=== PATIENT | male | born 2000 | race Hispanic/Latino ===

== ENCOUNTER 2024-06-17 17:22 | Emergency (ER) | payer SELFPAY ==
[~2024-06-17] VITALS: Ht 162.6 cm; Wt 59.0 kg
[2024-06-17 17:59] LABS: COVID19 (SARS ANTIGEN RAPID) PRESUMPTIVE NEGATIVE (NEGATIVE); INFLUENZA TYPE B Negative For Type B (NEGATIVE)
[2024-06-17 18:15] LABS: INFLUENZA TYPE A Positive For Type A (NEGATIVE)
[2024-06-17] MEDS: acetaMINOPHEN 500 MG TABLET PO STA (18:16)
[2024-06-17] MEDS: ketOROlac 15MG/ML VIAL (15MG/ML) IV STA (18:16)
[2024-06-17] MEDS: 0.9%NACL 1000ML 1,000 ML IV SCH (18:16)
[2024-06-17 18:39] VITALS: TEMP 99.5
[2024-06-17 18:45] VITALS: BP 135/80; PULSE 90; RESP 16; TEMP 99.5; O2SAT 98
[2024-06-17] MEDS ORDERED: OSEL75 PO (19:17)
[2024-06-17] MEDS ORDERED: ONDA-243 PO (19:17)
--- NOTE | 2024-06-17 19:18 | ERN ---
ED Note History of Present Illness Stated Complaint: FLU LIKE SYMPTOMS SINCE YESTERDAY Chief Complaint: Flu Symptoms Time Seen by MD: 17:23 Time Seen by Midlevel: 17:26 Dictation: 24-year-old male with no past medical history coming in complaining of flu-like symptoms since yesterday. Patient states he took Tylenol cold and flu at 8:00 a.m. but had an vomiting episodes. Denies any other symptoms. Past Medical History Past Medical History: No Pertinent History Surgical History: None Review of System Dictation Constitutional: Positive for fever and chills and body aches Eyes: Negative for injury, pain,redness, and discharge ENT: Negative for injury,pain or swelling Cardiovascular: Negative for chest pain, palpitations, and edema Respiratory: Complaining of cough and congestion, no wheezing or short of breath Abdomen/GI: Negative for abdominal pain, nausea, vomiting, diarrhea, and constipation Back: Negative for injury and pain : Negative for injury, bleeding and discharge MS/Extremity: Negative for injury and deformity Skin: Negative for rash, and discoloration Neuro: Negative for headache, weakness, numbness, tingling, and seizure Psych: Negative for suicide ideation, homicidal ideation, and hallucinations Review of Systems: was completed Initial Vital Sign VS Vital Signs Date Time Temp Pulse Resp B/P (MAP) Pulse Ox O2 Delivery O2 Flow Rate FiO2 06/17/24 17:24 100.6 111 20 142/88 98 Room Air 0 06/17/24 18:45 21 Physical Exam Dictation General: awake, alert, NAD Head/Face: Normocephalic, atraumatic Eyes: PERRL, EOMI, vision at baseline ENT: oral cavity clear, TMs clear, no signs of infection Neck: Trachea midline, supple, no nuchal rigidity Cardiovascular: RRR, normal S1/S2, No MRGs, no JVD Respiratory: CTAB, no respiratory distress, No rales or wheezes Abdomen: Soft, non-tender, non-distended, normal bowel sounds, no guarding or rebound. Skin: Warm, dry, normal turgor, no rash MS/Extremity: Pulses equal, no cyanosis, neurovascular intact, FROM Neuro: COAx4, GCS 15, strength 5/5, CN 2-12 intact, normal cerebellar exam, normal gait, Psych: Normal behavior, mood, and affect normal Results (Laboratory/Radiology) Laboratory/Radiology Laboratory Tests Test 06/17/24 17:26 06/17/24 17:46 Influenza Type A Antigen Positive For Type A Influenza Type B Antigen Negative For Type B SARS-CoV-2 Antigen (Rapid) PRESUMPTIVE NEGATIVE Group A Streptococcus Rapid negative (NEGATIVE) Labs Reviewed?: Yes ED Course ED Course Orders Procedure Category Date Status Time Influenza Type A & B, LAB 06/17/24 Complete Rapid 17:24 Covid19 (Sars Antigen LAB 06/17/24 Complete Rapid) 17:24 Rapid (Group A Strep) LAB 06/17/24 Complete 17:41 Acetaminophen 500mg PHA 06/17/24 Complete Tab (Tylenol 500mg T 17:41 Ketorolac PHA 06/17/24 Complete Tromethamine 15mg/Ml 17:41 0.9%Nacl 1000ml (Ns PHA 06/17/24 In Process 1000ml) 18:00 Current Medications Medications (Trade) Dose Ordered Sig/Hans Route PRN Reason Start Time Stop Time Status Last Admin Dose Admin Acetaminophen (TYLenol 500MG TAB) 1,000 mg ONCE STAT PO 06/17/24 17:41 06/17/24 17:43 DC 06/17/24 18:16 Ketorolac Tromethamine (toRADol) 15 mg ONCE STAT IV 06/17/24 17:41 06/17/24 17:43 DC 06/17/24 18:16 Sodium Chloride 1,000 ml @ 1,000 mls/hr Q1H IV 06/17/24 18:00 07/17/24 17:59 06/17/24 18:16 Vital Signs Date Time Temp Pulse Resp B/P (MAP) Pulse Ox O2 Delivery O2 Flow Rate FiO2 06/17/24 18:45 99.5 90 16 135/80 98 Room Air* 0 21 06/17/24 18:16 100.2 06/17/24 17:24 100.6 111 20 142/88 98 Room Air 0 Medical Decision Making MDM MDM: 24-year-old male with no past medical history coming in complaining of flu- like symptoms since yesterday. Patient states he took Tylenol cold and flu at 8:00 a.m. but had an vomiting episodes. Denies any other symptoms. Serology positive for flu A. We will prescribe patient Tamiflu. Discussed that he needs to take Tylenol or Motrin [id number] to control symptoms and he can buy wohx-[id number] decongestants and cough suppressants to help. Patient verbalized understanding, answered all questions. Differential diagnosis: Influenza, COVID, strep, viral syndrome Rationale: Tests considered and ordered secondary to shared decision making include: Previous outside records reviewed: Old ER visits. Risk of complication and/or morbidity or mortality of patient management: None Medications-Per medication reconciliation Need for hospitalization: Patient does not meet criteria for hospitalization. Need for emergency major/minor surgery: No There are no social concerns with this patient. Prescription drug management Prescriptions will include symptomatic care Patient's prior external medical records from other ER visits were reviewed by me as indicated. Prior testing and results from previous visits were reviewed. Prior tests were taken into account with medical decision making and resource utilization, independent historian/historians were used to obtain complete medical history. I independently interpreted the test that were performed, results were reviewed by me and considered findings on radiology if ordered. Medical management and examination interpretation discussions were had by me with other qualified healthcare professionals as indicated for the patient's care. DX & DISP Disposition: Discharge Departure Impression: Primary Impression: Influenza Condition: Stable Scripts Ondansetron (Ondansetron Odt) 4 Mg Tab.rapdis 4 MG PO Q6HPRN PRN for nausea, #16 TAB 0 Refills Prov: STAR ROTH NP 06/17/24 Oseltamivir Phosphate (Tamiflu) 75 Mg Cap 1 CAP PO BID for 5 Days, #10 CAP 0 Refills Prov: STAR ROTH NP 06/17/24 Additional Instructions: You have influenza. You can take stxx-kew-aqyemwn Tylenol and Motrin to control the fever and body aches. You can also take iyne-hfg-skebkgq decongestants and cough medication. Return to the hospital if any symptoms worsen. Time of Disposition: 19:17 I have reviewed the case, and I agree with, Diagnosis and Plan STAR ROTH NP Jun 17, 2024 19:17
== END 2024-06-17 19:31 | disposition home or self-care (01) ==
LOC: EDH 17:22 → EDBD 17:22 → EDH 19:31
DX: J11.1 Influenza due to unidentified influenza virus with other respiratory manifestations (principal); Z20.822 Contact with and (suspected) exposure to COVID-19
CPT/HCPCS: 99283; 96374; 87426; 87880; 87804 ×2; J7030; J1885

== ENCOUNTER 2025-05-03 14:48 | Emergency (ER) | payer SELFPAY ==
[~2025-05-03] VITALS: Ht 162.6 cm; Wt 59.0 kg
[~2025-05-03 14:48] MED LIST: ONDA-243 PO; OSEL75 PO
--- NOTE | 2025-05-03 15:07 | HP ---
[facility] HISTORY AND PHYSICAL Date of Service: May 03, 2025 Time of Service: 15:02 HISTORY OF PRESENT ILLNESS: [ ] Admission date 05/03/2025 Chief complaint rectal bleed PCP self referral This is a 25-year-old male REVIEW OF SYSTEMS A 12 point ROS was obtained all relevant positive documented otherwise ROS negative PAST MEDICAL HISTORY: [ ]no pertinent history PAST SURGICAL HISTORY: [ ] none PAST SOCIAL HISTORY: [ ] FAMILY HISTORY: [ ]noncontributory Coded Allergies: No Known Drug Allergies (Unverified Allergy, Unknown, 05/03/25) PHYSICAL EXAM GENERAL APPEARANCE: The patient is awake, alert, and oriented, in no acute cardiopulmonary distress. NEUROLOGICAL: Cranial nerves II-XII grossly intact. Motor is 5/5 in bilateral upper and lower extremities proximal to distal. No sensory deficits. HEENT: Face is symmetric. Pupils are equal and reactive. Extraocular movements are intact. NECK: Supple. No JVD. No thyromegaly. No submental, submandibular, pre- /postauricular, occipital or supraclavicular lymphadenopathy. CHEST: Normal chest expansion. No Telemetry. LUNGS: Absence of any rales, rhonchi or any wheezing. CARDIOVASCULAR: Regular. S1 and S2 normal. No appreciable rubs, murmurs or gallops. ABDOMEN: Soft, nontender, and nondistended. There is no rebound, voluntary guarding, or rigidity. : Deferred. No Gonsalez. EXTREMITIES: Non-edematous and not cyanotic. No clubbing. Good capillary refill. SKIN: No skin breakdown. Vital Sign (Last 24 Hours) 05/03/25 14:50 Temp 97.9 Pulse 58 Resp 20 B/P (MAP) 151/82 Pulse Ox 100 O2 Delivery Room Air O2 Flow Rate 0 LABS: DIAGNOSTICS / RADIOLOGY: [ ] ASSESSMENT: Rectal bleed secondary to hemorrhoids POA Acute anemia secondary to blood loss from hemorrhoids POA PLAN: [ ] Admit: Surgical floor condition: Guarded Status: Full code IVF: NS at 75 mL/hour [facility] GI Labs cbc, cmp, mag+ H&H every 6 hours Type and screen we will monitor H&H trend transfuse to keep hemoglobin above 7.0 Replace electrolytes as needed as per protocol to keep potassium above 4.0 magn esium 2.0. Home medications pending to be reviewed by RN nurse. PRN: MEDICATIONS Tylenol 650 mg po every 4 hrs for fever zofran 4 mg IV every 6 hrs for n/v Hydralazine 5 mg IV every 4 hrs systolic pressure > 160 bowel regiment: lactulose 20 gm PO BID PRN constipation Supportive measures: DVT ppx, GI ppx all questions answered time spent: > 35 min Supervising MD: Dr.Montes Christensen c/d This document was generated in part using voice recognition software, occasional wrong word or sound alike substitutions may have occurred due to the inherent limitations of voice recognition software. Read the chart carefully and recognize using context, where the substitutions have occurred. Although every effort was made to edit the content, freight rate analyst and typing errors may occur [facility] PLANNING 1. Which of the following were discussed? Hospice Care - Yes / No Therapeutic options - Yes / No Advance Directives - Yes / No Other discussions - 2. Discussed with who? 3. Voluntary nature of this service was explained to the patient? Yes / No 4. Amount of time spent - 5. Reviewed by Physician? (if this service was performed by NPP) Yes / No ATTESTATION BY PHYSICIAN I have seen and examined the patient. I reviewed the documentation, medical decision making, and treatment plan as noted by the mid-level provider above. I agree with the findings and plan of care. Monster Du IV, MD, [facility] May 03, 2025 15:06
[2025-05-03 15:48] VITALS: BP 153/88; PULSE 58; RESP 20; TEMP 97.9; O2SAT 100
--- NOTE | 2025-05-03 15:52 | ERN ---
General Chief Complaint: Other Problems Stated Complaint: INHALED PLASTIC Time Seen by MD: 14:56 Source: patient History of Present Illness Initial Comments PATIENT IS A 25-YEAR-OLD MALE COMING IN COMPLAINING OF SMOKING MARIJUANA WITH A POSSIBLE INHALED PLASTIC. Allergies: Coded Allergies: No Known Drug Allergies (Unverified Allergy, Unknown, 05/03/25) Home Meds Active Scripts Ondansetron (Ondansetron Odt) 4 Mg Tab.rapdis, 4 MG PO Q6HPRN PRN for nausea, #16 TAB 0 Refills Prov:STAR ROTH [facility] 06/17/24 Oseltamivir Phosphate (Tamiflu) 75 Mg Cap, 1 CAP PO BID for 5 Days, #10 CAP 0 Refills Prov:STAR ROTH [facility] 06/17/24 Past Medical History Past Medical History: No Pertinent History Past Surgical History: None ROS Dictation CONSTITUTIONAL: NO CHILLS, NO FEVER, NO WEAKNESS, NO DIAPHORESIS, NO MALAISE. HEAD/FACE: NO SIGNS OF TRAUMA. EENT: NO EYE PAIN, NO BLURRED VISION, NO TEARING, NO DOUBLE VISION, NO EAR PAIN, NO EAR DISCHARGE, NO NOSE PAIN, NO NASAL CONGESTION, NO THROAT PAIN, NO THROAT SWELLING, NO MOUTH PAIN. RESPIRATORY: NO COUGH, NO ORTHOPNEA, NO SOB, NO STRIDOR, NO WHEEZING. CARDIOVASCULAR: NO CHEST PAIN, NO EDEMA, NO PALPITATIONS, NO SYNCOPE. GASTROINTESTINAL/ABDOMINAL: NO ABDOMINAL PAIN, NO CONSTIPATION, NO DIARRHEA, NO NAUSEA, NO VOMITING. GENITOURINARY: NO ABNORMAL DISCHARGE, NO DYSURIA, NO FREQUENT URINATION, NO HEMATURIA. NO COMPLAINTS OF PAIN IN THE GENITALS. MUSCULOSKELETAL: NO BACK PAIN, NO GOUT, NO JOINT PAIN, NO JOINT SWELLING, NO MUSCLE PAIN, NO MUSCLE STIFFNESS, NO NECK PAIN. INTEGUMENTARY: NO CHANGE IN COLOR, NO CHANGE IN HAIR/NAILS, NO DRYNESS, NO LESION, NO LUMPS, NO RASH. NEUROLOGICAL/PSYCH: NO ANXIETY, NOT DEPRESSED, NO EMOTIONAL PROBLEM, NO HEADACHE, NO NUMBNESS, NO PRE-EXISTING DEFICIT, NO HISTORY OF SEIZURES, NO TREMORS, NO WEAKNESS. HEMATOLOGIC/LYMPHATIC: NOT ANEMIC, NO HISTORY OF BLOOD CLOTS, NO APPARENT BLEEDING, NO BRUISING, GLANDS NOT SWOLLEN. ALL SYSTEMS NEGATIVE, EXCEPT NOTED. Physical Exam Physical Exam Dictation VITAL SIGNS: REVIEWED. GENERAL APPEARANCE: ALERT, ORIENTED X3, NO ACUTE DISTRESS, OBESE. HEAD AND FACE: NON-TRAUMATIC. EYES: PERRL, PINK CONJUNCTIVAS, EYELID NO TRAUMA, ANTERIOR CHAMBER CLEAR. EARS: PINNAS INTACT AND NO SIGNS OF TRAUMA OR ERYTHEMA. EAR CANALS CLEAR AND NO DISCHARGE. TMS NO ERYTHEMA. NOSE: NO DISCHARGE, NO BLEEDING. OROPHARYNX: MOUTH NORMAL, TEETH NO CARIES, TONGUE PINK. PHARYNX CLEAR, NO ERYTHEMA. TONSILS NO EXUDATES, NO ABSCESSES NOTED. MUCOUS MEMBRANE MOIST. NECK: SUPPLE, NON-TENDER, NO THYROMEGALY, NO MASSES, NO JVD, NO BRUITS. BREAST: DEFERRED. CHEST: NO TENDERNESS, NO CREPITUS, NO PARADOXICAL MOVEMENT, NO RETRACTIONS. LUNGS: CLEAR, WELL-VENTILATED, SYMMETRIC, NO RALES, NO WHEEZING, NO RHONCHI, NO STRIDOR, GOOD BREATH SOUNDS BILATERALLY. HEART: REGULAR RATE, REGULAR RHYTHM, NO MURMUR, NO GALLOPS. VASCULAR: NO PERIPHERAL EDEMA. ABDOMEN: SOFT, POSITIVE BOWEL SOUNDS, NONDISTENDED, NO GUARDING, NONTENDER, NO REBOUND, NO MASSES NO HEPATOMEGALY, NO SPLENOMEGALY, NO SAM'S SIGN, NO HERNIAS. RECTAL: DEFERRED. GENITAL: DEFERRED. NEUROLOGICAL: NORMAL SPEECH, GROSS MOTOR FUNCTION INTACT, GROSS SENSORY FUNCTION INTACT. MUSCULOSKELETAL: NECK NONTENDER, FULL RANGE OF MOTION, BACK NONTENDER, FULL RANGE OF MOTION. EXTREMITIES: NONTENDER, FULL RANGE OF MOTION. SKIN: COLOR PINK, DRY, NO TURGOR, NO RASH, NO LACERATIONS, NO ABRASIONS, NO CONTUSIONS. LYMPHATICS: DEFERRED. Results Laboratory and Microbiology Labs Reviewed?: Yes MDM MDM: DIFFERENTIAL DIAGNOSIS: HABITUAL CANNABIS SMOKER RATIONALE: TESTS CONSIDERED AND ORDERED SECONDARY TO SHARED DECISION MAKING INCLUDE: PREVIOUS OUTSIDE RECORDS REVIEWED: OLD ER VISITS. RISK OF COMPLICATION AND/OR MORBIDITY OR MORTALITY OF PATIENT MANAGEMENT: NONE MEDICATIONS-PER MEDICATION RECONCILIATION NEED FOR HOSPITALIZATION: PATIENT DOES NOT MEET CRITERIA FOR HOSPITALIZATION. NEED FOR EMERGENCY MAJOR/MINOR SURGERY: NO PATIENT IS A 25-YEAR-OLD GENTLEMAN COMING IN DUE TO POSSIBILITY OF SMOKE HIS A PLASTIC. PER PATIENT FIVE DAYS AGO HE SMOKED SOME MARIJUANA CIGARETTES AND STATES HE MIGHT HAVE SMOKED SOME PLASTIC IN THE MARIJUANA. PATIENT DOES SEEM ANXIOUS BUT STATES HE HAS BEEN SMOKING MARIJUANA ON HIS LIFE I DID ADVISE HIM TO ABSTAIN FROM SMOKING MARIJUANA THIS WILL CAUSE HIS ANXIETY DID GET HAS BEEN CONTROLLED. I WILL REFER PATIENT TO LOCAL PRIMARY CARE PHYSICIAN FOR ONGOING EVALUATION. I ALSO ADVISED HIM BASED ON THE VITAL SIGNS AND SINCE THIS HAPPENED A COUPLE FIVE DAYS AGO HE SHOULD ABSTAIN AND FOLLOW UP ACCORDINGLY. VITAL SIGNS WITHIN NORMAL LIMITS ON TWO CHECKS ED Course Vital Signs Date Time Temp Pulse Resp B/P (MAP) Pulse Ox O2 Delivery O2 Flow Rate FiO2 05/03/25 15:48 97.9 58 20 153/88 100 Room Air* 0 21 05/03/25 14:50 97.9 58 20 151/82 100 Room Air 0 DX & DISP Disposition: Discharge Departure Impression: Primary Impression: Marijuana abuse, continuous Condition: Stable Additional Instructions: FOLLOW-UP WITH PRIMARY CARE PROVIDER IN 1 TO 2 DAYS. TAKE MEDICATIONS DIRECTED HERE IN THE EMERGENCY ROOM. OKAY TO CONTINUE HOME MEDICATIONS UNLESS OTHERWISE DISCUSSED DURING YOUR VISIT IN THE EMERGENCY ROOM TODAY. RETURN TO YOUR NEAREST EMERGENCY ROOM IF SYMPTOMS WORSEN OR IF THERE IS NO IMPROVEMENT. CALL 911 IF YOU NEED IMMEDIATE ASSISTANCE. TAKE TYLENOL [id number] NEEDED AND IF NO CONTRAINDICATIONS ARE PRESENT. INCREASE ORAL HYDRATION. A WOUND CULTURE OR URINE CULTURE WAS ORDERED HERE IN THE EMERGENCY ROOM DEPARTMENT PLEASE FOLLOW-UP WITH PRIMARY CARE PROVIDER AND ADVISE THEM TO GET REPORTS FROM OUR FACILITY. IF YOU HAD ANY PARAMJIT WRAP/SPLINTS THAT WERE APPLIED HERE, PLEASE DO NOT REMOVE THEM UNTIL YOU SEE YOUR PRIMARY CARE OR SPECIALTY. REFERRALS: Referrals: SELF,REFERRAL (PCP) ISHA LAWRENCE MD Time of Disposition: 15:57 MIKE DONATO MD May 03, 2025 15:52
== END 2025-05-03 16:21 | disposition home or self-care (01) ==
LOC: EDH 14:48
DX: F12.10 Cannabis abuse, uncomplicated (principal)
CPT/HCPCS: 99282